=== PATIENT | female | born 1945 | race Caucasian/White ===

== ENCOUNTER → 2016-08-05 | Outpatient (CLI) | payer OTHER ==
[~2016-08-05] MED LIST: ACETAMINOPHEN500 M2 PO; ACID REDUCER20 MG PO; ADVAIR; ADVAIR 2501 DISK W/D PO; ALBUTEROL; ALBUTEROL2.5 MG/0.5 IH; ARICEPT PO; ASPIR-TRIN325 MG PO; ASPIRIN EC81 M1 PO; ASPIRIN PO; ASPIRIN81 M2 PO; ASPIRINBUFF PO; ATROVENT NEB; AZITHROMYCIN250 MG PO; BACLOFEN10 MG PO; BENICAR PO; BENTYL10 MG PO; BUDESONIDE0.5 MG/2 M IH; CAL MAG ZINC +1 EAC1 PO; CALCIUM; CALCIUM-MAGNESI1 TA4 PO; CALCIUM/MG/ZINC PO; CELEXA PO; CHILDREN'S CHE1 EACH PO; CIPRO PO; COMBIVENT INH14.7 GM INH; COMBIVENT RESPIM4 GM IH; CYMBALTA PO; D3 DOTS2000 UNIT PO; EC-NAPROSYN500 MG PO; FLEXERIL PO; FLEXERIL10 MG PO; FLUOXETINE HCL40 M1 PO; FOLIC ACID; FOLIC ACID PO; GLUCOPHAGE XR500 MG PO; GLUCOPHAGE XR750 MG PO; KCL PO; LASIX PO; LEVAQUIN750 MG PO; LISINOPRIL2.5 MG PO; LOPRESSOR PO; LORTAB 5/500 TA1 TA1 PO; MAGNES; MEDROL PO; MEDROL4 MG/DOSE- PO; METFORMIN HCL750 MG PO; METFORMIN PO; METHIMAZOLE5 MG PO; METRONIDAZOLE PO; MULTIPLE VITAMI1 T13 PO; MULTIVITAM PO; NAPROSYN500 MG PO; NAPROXEN PO; OMEPRAZOLE20 M2 PO; PERCOCET PO; PERCOCET5/325 PO; PERFOROMIS20 MCG/2 M IH; PREDNISONE PO; PRILOSEC PO; PRILOSEC20 MG PO; PROAIR HFA8.5 GM; QVAR7.3 G1 INH; REQUIP1 MG PO; SARAFEM20 MG PO; SPIRIVA18 MCG INH; SUPER B COMPLEX1 CAP PO; VITAMIN D-3 4001 TAB PO; VITAMIN D-40400 UNIT PO; ZESTRIL2.5 MG PO; ZINC
--- NOTE | ~2016-08-05 | CT2 ---
[facility] A Service of [facility] RADIOLOGY TEXT RESULTS PATIENT: MAHI HARRY [facility] 43 UNIT #: [id number] AGE: [address]: ELVIA PEREIRA DO SEX: F ORDER DR: [id number] [facility] [address] [place], [place] [address] [id number] MR#: [id number] Acc #: [id number] NAME: MAHI HARRY : 1945 SEX: F STUDY DATE/TIME: 08/05/2016 15:16 UNIT: [facility] ROOM: STUDY DESCRIPTION: CT Abd and Pelv W Cont Attending Physician: Elvia Pereira D.O. Referring Physician: Elvia Pereira D.O. Ordering Physician: Elvia Pereira D.O. Primary Care Physician: Trena Chou A.P.R.N. MEDICAL IMAGING REPORT This report is preliminary unless electronic signature is present EXAM CT abdomen and pelvis with contrast. INDICATION Generalized abdominal pain, particularly epigastric region pain for the past 3-4 months. PROCEDURE Contrast-enhanced CT of the abdomen and pelvis. This CT exam was performed with one or more of the following radiation dose reduction techniques: automatic exposure control, adjustment of mA and/or kV according to patient size, and iterative reconstruction. COMPARISON 07/13/2015 FINDINGS ABDOMEN WITH CONTRAST: There is atelectasis in the right lung base. There is a 7 mm ground-glass nodule in the right lower lobe. Elevated right hemidiaphragm. Liver and spleen show no focal lesion. Kidneys, adrenal glands, pancreas are unremarkable. Previous cholecystectomy. Bowel loops are nondilated. PELVIS WITH CONTRAST: No pelvic mass or fluid. Low-attenuation liver compared with the spleen is nonspecific on contrast-enhanced CT but raising suspicion for hepatic steatosis. No aggressive appearing bone lesion. IMPRESSION [facility] A Service of [facility] RADIOLOGY TEXT RESULTS PATIENT: MAHI HARRY [facility] UNIT #: [id number] AGE: [address]: ELVIA PEREIRA DO SEX: F ORDER DR: 1. No acute findings. 2. Suspicion for hepatic steatosis. 3. Elevated right hemidiaphragm with right basilar atelectasis. 4. 7 mm ground-glass nodule right lower lobe is not clearly seen on the previous study. Consider a 6-12-month followup chest CT. Dictated by... Jet Godwin M.D. THIS IS AN ELECTRONICALLY VERIFIED REPORT Jet Godwin M.D. at 08/06/2016 1:56 PM CARISA/tanja TD: 08/05/2016 17:05 JOB #: [id number] MEDICAL IMAGING REPORT Page 1 of 1 COPY
[2016-08-05 15:00] LABS: POC - CREATININE 0.74 mg/dL (0.44-1.03); POC - GFR >60.0 mL/min (>60)
== END | disposition home or self-care (01) ==
LOC: CGUS 08-04 10:30 → CCAT 13:37 → CGUS 14:40
PROVIDERS: Family Medicine
DX: R10.9 Unspecified abdominal pain (principal); K59.09 Other constipation; R63.4 Abnormal weight loss; J98.11 Atelectasis; J98.6 Disorders of diaphragm; R91.1 Solitary pulmonary nodule; Z87.891 Personal history of nicotine dependence
CPT/HCPCS: 74177; 82565; Q9967